=== PATIENT | female | born 1980 | race Caucasian/White ===

== ENCOUNTER → 2020-09-09 14:16 | Outpatient (BNVA) | payer BC, SELFPAY | PROVIDERS: Visit Provider Obstetrics & Gynecology | DX: Z76.89 Persons encountering health services in other specified circumstances (principal) ==

== ENCOUNTER 2020-09-11 08:37 | Outpatient (REF) | payer BC, SELFPAY ==
[2020-09-11 10:13] LABS: MANUAL DIFF FLAG NO
[2020-09-11 10:24] LABS: Basophils Absolute Auto 0.1 X10*3/uL (0.0-0.2); Basophils Percent Auto 0.7 % (0-2); Eosinophils Absolute Auto 0.1 X10*3/uL (0.0-0.4); Eosinophils Percent Auto 1.6 % (0-4); Hematocrit 44.3 % (37-47); Hemoglobin 14.7 g/dl (12.0-16.0); Imm Gran Abs Auto 0.02 X10*3/uL (0.00-0.03); Imm Gran Pct Auto 0.3 % (0.0-0.4); Lymphocytes Absolute Auto 2.4 X10*3/uL (1.2-4.9); Lymphocytes Percent Auto 31.6 % (20-40); Mean Corpuscular HGB Conc 33.2 g/dl (31.0-35.0); Mean Corpuscular Hemoglobin 30.1 pg (27.0-33.0); Mean Corpuscular Volume 90.6 fL (80-98); Mean Platelet Volume 8.8 fL (9.4-12.3); Monocytes Absolute Auto 0.6 X10*3/uL (0.1-1.2); Monocytes Percent Auto 8.3 % (2-11); Neutrophils Absolute Auto 4.4 X10*3/uL (2.0-8.3); Neutrophils Percent Auto 57.5 % (45-73); Platelet Count 226 X10*3/uL (160-400); Red Blood Count 4.89 X10*6/uL (4.20-5.50); White Blood Count 7.7 X10*3/uL (4.8-10.8)
[2020-09-11 10:42] LABS: Alanine Aminotransferase 17 U/L (0-31); Albumin Level 4.4 g/dL (3.5-5.0); Alkaline Phosphatase 81 U/L (39-117); Anion Gap 11 (12-20); Aspartate Amino Transferase 15 U/L (5-31); Bilirubin Total 0.9 mg/dL (0.0-1.0); Blood Urea Nitrogen 12 mg/dL (9-16); Calcium 9.1 mg/dL (8.4-10.2); Carbon Dioxide 28 mmol/L (22-29); Chloride 106 mmol/L (96-108); Estimated Glomerular Filt Rate > 60; Glucose Random 94 mg/dL (60-115); Potassium 4.8 mmol/l (3.3-5.1); Sodium 140 mmol/L (135-145); Total Protein 6.9 g/dL (6.5-8.0)
[2020-09-11 11:29] LABS: Erythrocyte Sedimentation Rate 7 MM/HR (0-20)
[2020-09-11 13:29] LABS: Thyroid Stimulating Hormone 0.77 uIU/mL (0.32-4.0)
[2020-09-12 16:42] LABS: CRP High Sensitivity 1.1 mg/L
== END 2020-09-11 08:38 | disposition home or self-care (01) ==
LOC: HO.LAB 08:37
PROVIDERS: PCP Internal Medicine; Referring Provider Internal Medicine; Visit Provider Physician Assistant
DX: K59.09 Other constipation (principal); K92.1 Melena; R19.7 Diarrhea, unspecified; R10.11 Right upper quadrant pain
CPT/HCPCS: 36415; 80053; 84443; 85025; 85652; 86141

== ENCOUNTER → 2020-09-16 11:18 | Outpatient (BNVA) | payer BC, SELFPAY | PROVIDERS: Visit Provider Obstetrics & Gynecology | DX: Z76.89 Persons encountering health services in other specified circumstances (principal) ==

== ENCOUNTER 2020-10-02 09:38 | Day surgery (SDC) | payer BC, SELFPAY ==
[2020-09-23 20:04] VITALS: BMI 27.0
--- NOTE | 2020-10-01 09:14 | P.CONAN_ITS ---
Documented by User: Sunita Agrawal 10/01/20 09:17 HPI - Anesthesia Eval Consult details Narrative: 40yo F for Colonoscopy [facility] Past Medical History Medical History (Updated 10/01/20 @ 09:15 by Sunita Agrawal) Blood in stool Family History Family History Mother Cervical cancer Father No problems noted. Surgical History Surgical History (Updated 09/23/20 @ 20:06 by Julianna Nunez RN) History of excision of lesion No significant past surgical history Social History Social History Alcohol intake: current Alcohol intake frequency: holidays/special occasions only Alcohol type: wine Smoking Status: Current every day smoker Tobacco Type: Cigarette Packs Per Day: 0.5 Cigarettes Per Day: 10.0 Years Smoked: 20 Smoked in Last 30 Days: Yes Use of substances other than those prescribed or required for medical reasons: No Advance Directives: No Advance Directives Information Provided: No Advance Directives on File: No Sexual orientation: Straight/Heterosexual Gender identity: female Meds Allergies Allergy/AdvReac Type Severity Reaction Status Date / Time morphine Allergy swelling Verified 09/16/20 11:19 Home Medications Medication Instructions Recorded Confirmed Type levonorgestrel 20 mcg/24 hours (6 INTRAUTERINE 09/09/20 History yrs) 52 mg intrauterine device Exam Exam Date and Time: October 01, 2020 0914 Height,Weight and Vital Signs: Height 5 ft 8 in Weight 80.739 kg Pertinent Lab Results Pertinent Lab Results: Laboratory Tests 09/11/20 09/11/20 09:58 09:58 WBC 7.7 Hgb 14.7 Hct 44.3 Plt Count 226 Sodium 140 Potassium 4.8 Chloride 106 Carbon Dioxide 28 BUN 12 Creatinine 0.79 Assessment and Plan Assessment Anesthesia Assessment: Chart Reviewed Documented by User: Heather Ortiz 10/02/20 10:07 [facility] Past Medical History Medical History (Updated 10/01/20 @ 09:15 by Sunita Agrawal) Blood in stool Family History Family History Mother Cervical cancer Father No problems noted. Surgical History Surgical History (Updated 09/23/20 @ 20:06 by Julianna Nunez RN) History of excision of lesion No significant past surgical history Social History Social History Alcohol intake: current Alcohol intake frequency: holidays/special occasions only Alcohol type: wine Smoking Status: Current every day smoker Tobacco Type: Cigarette Packs Per Day: 0.5 Cigarettes Per Day: 10.0 Years Smoked: 20 Smoked in Last 30 Days: Yes Use of substances other than those prescribed or required for medical reasons: No Advance Directives: No Advance Directives Information Provided: No Advance Directives on File: No Sexual orientation: Straight/Heterosexual Gender identity: female Meds Allergies Allergy/AdvReac Type Severity Reaction Status Date / Time morphine Allergy swelling Verified 09/16/20 11:19 Home Medications Medication Instructions Recorded Confirmed Type levonorgestrel 20 mcg/24 hours (6 INTRAUTERINE 09/09/20 History yrs) 52 mg intrauterine device Exam Airway TM Dist: >3cm Neck ROM: Full Denture: Upper Heart: RRR Lungs: CTA BL Assessment and Plan Assessment Anesthesia Assessment: Anesthesia Plan Discussed and Chart Reviewed Final Anesthetic Review NPO: Yes ASA Class: II Final Preanesthetic Review: Meds/Allgs Chart Reviewed and Consent Obtained/Reviewed Patient Risk: Intermediate Procedure Risk: Intermediate Anesthetic Plan Anesthetic Plan: MAC: Disposition: Standard PACU
[2020-10-02 10:04] VITALS: BP 121/86; PULSE 98; RESP 16; TEMP 36.2; O2SAT 99
[2020-10-02] MEDS: Lactated Ringers 1,000 ML 100 ML IVCONT (10:19)
--- NOTE | 2020-10-02 10:43 | MHC.SHP ---
Pre-Procedural Eval Section B Chief Complaint: Blood in Stool Relevant Family History (Specify if Yes): No Relevant Social History: Tobacco Use Present Medications: None Medical History: Significant History (smoker) History of Previous Operations: Relevant previous surgery/procedure and date(s) (IUD) Allergies: Allergies Allergy/AdvReac Type Severity Reaction Status Date / Time morphine Allergy swelling Verified 09/16/20 11:19 Review of Systems Sugical H&P ROS: Negative: Constitution, Cardiovascular, Respiratory, Neurological, Psychiatric, Hem-Onc, Allergic/Immunologic, Gastrointestinal, Genitourinary, Musculoskeletal, Integumentary, Endocrine and Eyes/Ears/Nose/Throat Exam Surgical H&P Exam: Normal: HEENT, Normal: Heart, Normal: Lungs, Normal: Extremities, Normal: Abdomen, Normal: Skin and Normal: Neurological Plan Diagnosis/Plan: Unchanged Patient has been examined and remains a candidate for the planned procedure
--- NOTE | 2020-10-02 10:45 | PM.OP ---
Brief Operative Note Date of Service: 10/02/20 Pre-op diagnosis: rectal bleeding Post-op diagnosis: same Procedure: see op note Surgeon: Cherelle Castro MD Anesthesia: MAC Estimated blood loss (mL): 0 Condition: stable Disposition: PACU
--- NOTE | 2020-10-02 10:45 | W.PM.OPN ---
Operative Note Operative Note Date of Service: 10/02/20 Narrative: Operative Information Procedure Description: Colonoscopy COLONOSCOPY Instrument: Olympus variable stiffness pediatric scope 190L Colonoscopy Monitoring: Vital signs and clinical assessment, continuous EKG monitoring, Pulse oximetry, Carbon Dioxide monitoring and blood pressure monitoring were done throughout the procedure. Colon withdrawal time was 22 minutes. Procedure: The patient was placed in the left lateral decubitis position and pre-procedure medications were administered. After a digital rectal examination of the ano-rectum, the video colonoscope was inserted into the rectum and advanced through the colon to the cecum/TI. The colonoscope was slowly withdrawn in a retrograde panoramic fashion and the colon mucosa was carefully examined including a retroflexed view of the rectum. Findings and interventions are described below. Procedure Difficulty: easy Findings: Terminal Ileum-normal Cecum:normal Ascending Colon: normal Transverse Colon -normal Descending Colon:normal Sigmoid Colon: small polyp 6-8 mm removed with biopsy forceps, at 25 cm from anal verge a 15-18 mm pedunculated polyp ws noted. This was injected with few cc of epinephrine and then removed with hot snare. The edges were ablated with soft tip coag and then 3 clips applied to close the defect. Rectum: Retroflexion with moderate sized internal hemorrhoids, grade I Anorectum - normal Colon preparation: [place] Bowel Preparation Scale Right colon; 3 Transverse colon: 3 Left colon; 3 (0 = Unprepared colon segment with mucosa not seen due to solid stool that cannot be cleared. 1 = Portion of mucosa of the colon segment seen, but other areas of the colon segment not well seen due to staining, residual stool and/or opaque liquid. 2 = Minor amount of residual staining, small fragments of stool and/or opaque liquid, but mucosa of colon segment seen well. 3 = Entire mucosa of colon segment seen well with no residual staining, small fragments of stool or opaque liquid) Impression and Post Procedure Diagnosis: polyps internal hemorrhoids Plan: High fiber diet leaflet Avoid straining at stool, epsom salts and sitz bath prn, anusol supps or cream prn Repeat Colonoscopy in 1-2 years or earlier if clinically indicated 5 d course of augmentin to reduce risk of post polypectomy syndrome Above findings were reviewed with the patient and relevant handouts were provided if indicated.
[2020-10-02 11:36] VITALS: BP 111/72; PULSE 72; RESP 16; TEMP 36.1; O2SAT 99
[2020-10-02 11:50] VITALS: BP 114/81; PULSE 82; RESP 16; O2SAT 96
[2020-10-02] MEDS: Amoxicillin/Potassium Clav 875 MG TABLET PO (12:02)
--- NOTE | 2020-10-02 12:24 | HO.POSTANES ---
Post Anesthesia Evaluation Post Anesthesia Evaluation Vital Signs: Vital Signs Temp Pulse Resp BP Pulse Ox 10/02/20 11:50 97.0 F 82 16 114/81 96 10/02/20 11:36 97.0 F 72 16 111/72 99 10/02/20 10:04 97.1 F 98 16 121/86 99 Anesthesia: Monitored Mental Status: Awake Pain Control: Satisfactory Nausea/Vomiting: None Hydration: Adequate Anesthesia-Related Issues: No Anes. Related Issues
== END 2020-10-02 12:29 | disposition home or self-care (01) ==
PROVIDERS: PCP Internal Medicine; Visit Provider Internal Medicine Gastroenterology
PROC: 0DJD8ZZ Inspection of Lower Intestinal Tract, Via Natural or Artificial Opening Endoscopic (ICD-10-PCS; CPT 45378; principal; 2020-10-02 11:10)
DX: K92.1 Melena (principal); D12.5 Benign neoplasm of sigmoid colon; K64.0 First degree hemorrhoids; F17.210 Nicotine dependence, cigarettes, uncomplicated
CPT/HCPCS: 45385; 45381; 88305; J0171

== ENCOUNTER → 2020-10-10 09:25 | Outpatient (BNVA) | payer BC, SELFPAY | PROVIDERS: PCP Internal Medicine; Visit Provider Physician Assistant | DX: Z76.89 Persons encountering health services in other specified circumstances (principal) ==

== ENCOUNTER 2020-11-13 12:47 | Outpatient (REF) | payer BC, SELFPAY ==
--- NOTE | 2020-11-13 12:53 | US_ITS ---
EXAMINATION: US PELVIS CLINICAL INFORMATION: Ovarian cyst. COMPARISON: None TECHNIQUE: Transabdominal and transvaginal ultrasound pelvis is performed. FINDINGS: The uterus is anteverted and anteflexed measuring 7.8 cm in length, 4.0 cm in AP and 6.2 cm wide. There is an IUD within the endometrial canal, suspicious for low-lying. No uterine lesions seen. The right ovary measures 3.7 x 1.5 x 2.3 cm and volume 6.7 mL. The left ovary measures 3.1 x 1.3 x 2.2 cm and volume 4.6 mL. There is small left adnexal cyst, question paraovarian or exophytic ovarian cyst measuring 1.7 x 1.0 x 2.0 cm. There is no free fluid in cul-de-sac. US/US pelvic limited IMPRESSION: Suspect low-lying IUD. Left paraovarian or exophytic ovarian cyst. Right ovary and cervix is unremarkable.
--- NOTE | 2020-11-13 12:53 | US_ITS ---
EXAMINATION: US PELVIS CLINICAL INFORMATION: Ovarian cyst. COMPARISON: None TECHNIQUE: Transabdominal and transvaginal ultrasound pelvis is performed. FINDINGS: The uterus is anteverted and anteflexed measuring 7.8 cm in length, 4.0 cm in AP and 6.2 cm wide. There is an IUD within the endometrial canal, suspicious for low-lying. No uterine lesions seen. The right ovary measures 3.7 x 1.5 x 2.3 cm and volume 6.7 mL. The left ovary measures 3.1 x 1.3 x 2.2 cm and volume 4.6 mL. There is small left adnexal cyst, question paraovarian or exophytic ovarian cyst measuring 1.7 x 1.0 x 2.0 cm. There is no free fluid in cul-de-sac. US/US transvaginal IMPRESSION: Suspect low-lying IUD. Left paraovarian or exophytic ovarian cyst. Right ovary and cervix is unremarkable.
== END 2020-11-13 12:48 | disposition home or self-care (01) ==
LOC: HO.US 12:47
PROVIDERS: Visit Provider Obstetrics & Gynecology
DX: N83.209 Unspecified ovarian cyst, unspecified side (principal)
CPT/HCPCS: 76830; 76857

== ENCOUNTER → 2020-11-27 16:02 | Outpatient (BNVA) | payer BC, SELFPAY | PROVIDERS: PCP Internal Medicine; Visit Provider Obstetrics & Gynecology | DX: Z76.89 Persons encountering health services in other specified circumstances (principal) ==

== ENCOUNTER → 2020-12-17 10:24 | Outpatient (BNVA) | payer BC, SELFPAY | PROVIDERS: Visit Provider Obstetrics & Gynecology ==

== ENCOUNTER 2021-10-22 15:37 | Outpatient (REF) | payer BC, SELFPAY ==
--- NOTE | ~2021-10-22 | MM_ITS ---
EXAMINATION: MM SCREENING DIGITAL BREAST TOMOSYNTHESIS, BILATERAL CLINICAL INFORMATION: Screening. Asymptomatic. The lifetime risk of breast cancer based on the Tyrer-Cuzick Model is 8.4%. COMPARISON: Mammography: None. TECHNIQUE: Digital breast tomosynthesis is performed in both the craniocaudal and mediolateral oblique views along with computer-aided detection (CAD). Synthesized 2D images are generated from the tomosynthesis. FINDINGS: The breasts are heterogeneously dense, which may obscure small masses (ACR BI-RADS breast composition Category c). No suspicious abnormal dominant mass or suspicious grouping of microcalcifications is identified within the right breast. About the inferior medial aspect of the left breast there is a circumscribed approximately 1.0 x 0.8 cm density lying approximately 3 cm from the nipple. There are also noted to be some calcifications about the deep lateral aspect of the left breast. Spot magnification views are recommended. MM/MM tomosynthesis screening BI IMPRESSION: Left breast calcifications and circumscribed density for further evaluation with spot magnification views of the calcifications and ultrasound of the circumscribed density. ASSESSMENT: BI-RADS 0: Incomplete - Need Additional Imaging Evaluation RECOMMENDATION: 1. Additional views of the left breast. 2. Targeted ultrasound if warranted after review of the additional views. 3. Radiology department staff will contact the patient for additional imaging.
== END 2021-10-22 15:38 | disposition home or self-care (01) ==
LOC: HO.MAMMO 15:37
PROVIDERS: Visit Provider Pediatrics
DX: Z12.31 Encounter for screening mammogram for malignant neoplasm of breast (principal)
CPT/HCPCS: 77063; 77067

== ENCOUNTER 2021-11-10 10:20 | Outpatient (REF) | payer BC, SELFPAY ==
--- NOTE | ~2021-11-10 | US_ITS ---
EXAMINATION: MM DIAGNOSTIC DIGITAL MAMMOGRAPHY, LEFT US DIAGNOSTIC ULTRASOUND BREAST, LEFT CLINICAL INFORMATION: Recall from baseline mammography for 2 findings, possible calcifications posterior outer left breast and smooth partly obscured nodular asymmetry periareolar medial left breast. TC score 8%. COMPARISON: Mammography: 10/22/2021 (baseline). TECHNIQUE: Digital mammography is performed in the following views: Spot magnification CC spot magnification ML, magnification exaggerated CC x2, magnification ML x2. Ultrasound left breast is targeted to the medial periareolar region. Grayscale imaging and color Doppler are performed without and with harmonics. FINDINGS: There are scattered areas of fibroglandular density (ACR BI-RADS breast composition Category b). Additional views periareolar left breast demonstrate subtle oval smooth benign-appearing nodule medial periareolar breast corresponding to the screening exam. No architectural abnormality. Additional magnification views outer left breast demonstrate a few isolated calcifications. There are no grouped or pleomorphic or segmental calcifications. Ultrasound demonstrates incidental oval simple cyst periareolar 9:00 position measuring 1.0 x 0.5 x 1.0 cm. Margins are circumscribed. There is increased through-transmission of sound. No associated color flow. Results are discussed with the patient at time of visit. US/US breast LT limited IMPRESSION: 1. Incidental simple cyst medial periareolar position, 1.0 cm. 2. No abnormal calcifications. ASSESSMENT: BI-RADS 2: Benign RECOMMENDATION: Routine annual mammography screening. This patient's information was entered into a reminder system with a target due date for their next mammogram.
== END 2021-11-10 10:21 | disposition home or self-care (01) ==
LOC: HO.MAMMO 10:20
PROVIDERS: PCP Pediatrics; Visit Provider Pediatrics
DX: R92.2 Inconclusive mammogram (principal)
CPT/HCPCS: 76642; 77061; 77065

== ENCOUNTER → 2022-01-01 10:02 | Outpatient (BNVA) | payer BC, SELFPAY | PROVIDERS: PCP Pediatrics; Referring Provider Pediatrics; Visit Provider Physician Assistant ==

== ENCOUNTER 2022-04-09 07:52 | Day surgery (SDC) | payer BC, SELFPAY ==
[2022-04-03 14:27] VITALS: BMI 25.8
--- NOTE | 2022-04-08 10:08 | HO.ANESPROP2 ---
Documented by User: Sunita Agrawal NP 04/08/22 10:08 HPI - Anesthesia Eval Consult details Narrative: 41yo F for Colonoscopy PMFSH Active Problems Active Problems: All Active Problems (Updated 01/01/22 @ 10:56 by Yoselyn Norton PA-C) Ovarian cyst (Acute) Tubular adenoma (Acute) Hemorrhoids (Acute) Blood in stool (Acute) Past Medical History Medical History Blood in stool Hemorrhoids Smoker Family History Family History Mother Cervical cancer Father No problems noted. Surgical History Surgical History History of excision of lesion No significant past surgical history Social History Social History (Updated 01/01/22 @ 10:54 by Yoselyn Norton PA-C) Household Members Other:: , 2 daughters Alcohol intake: current Alcohol intake frequency: a few times a month Alcohol type: wine Patient Tobacco Use Status: Current everyday Tobacco user Tobacco use type: Cigarette Cigarette Packs Per Day: 0.5 Cigarettes Per Day: 10.0 Years Smoked: 25 Use of substances other than those prescribed or required for medical reasons: No Are you DNR?: No Advance Directives: No Advance Directives Information Provided: No Advance Directives on File: No Recently lost weight without trying: No Nutrition Risks: No Nutritional Risk Patient : No Sexual orientation: Straight/Heterosexual Gender identity: Female Meds Allergies Allergy/AdvReac Type Severity Reaction Status Date / Time morphine Allergy swelling Verified 04/03/22 15:25 Home Medications Medication Instructions Recorded Confirmed Last Taken Type levonorgestrel 20 mcg/24 hours (7 intrauterine 09/09/20 01/01/22 Unknown History yrs) 52 mg intrauterine device (Mirena) Exam Exam Date and Time: April 08, 2022 1008 Height,Weight and Vital Signs: Height 5 ft 9 in Weight 79.379 kg Assessment and Plan Assessment Anesthesia Assessment: Chart Reviewed Documented by User: Ike Seymour MD 04/09/22 07:42 [facility] Past Medical History Medical History Blood in stool Hemorrhoids Smoker Family History Family History Mother Cervical cancer Father No problems noted. Family history of problems with anesthesia: No Surgical History Surgical History History of excision of lesion No significant past surgical history History of Problems with Anesthesia: No Social History Social History (Updated 01/01/22 @ 10:54 by Yoselyn Norton PA-C) Household Members Other:: , 2 daughters Alcohol intake: current Alcohol intake frequency: a few times a month Alcohol type: wine Patient Tobacco Use Status: Current everyday Tobacco user Tobacco use type: Cigarette Cigarette Packs Per Day: 0.5 Cigarettes Per Day: 10.0 Years Smoked: 25 Use of substances other than those prescribed or required for medical reasons: No Are you DNR?: No Advance Directives: No Advance Directives Information Provided: No Advance Directives on File: No Recently lost weight without trying: No Nutrition Risks: No Nutritional Risk Patient : No Sexual orientation: Straight/Heterosexual Gender identity: Female Meds Allergies Allergy/AdvReac Type Severity Reaction Status Date / Time morphine Allergy swelling Verified 04/03/22 15:25 Home Medications Medication Instructions Recorded Confirmed Last Taken Type levonorgestrel 20 mcg/24 hours (7 intrauterine 09/09/20 01/01/22 Unknown History yrs) 52 mg intrauterine device (Mirena) Exam Airway Mallampati Class: II TM Dist: >3cm Neck ROM: Full Assessment and Plan Assessment Anesthesia Assessment: Anesthesia Plan Discussed Final Anesthetic Review Family History of Problems with Anesthesia: No History of Problems with Anesthesia: No NPO: Yes ASA Class: II Final Preanesthetic Review: No Changes in Pt Med Stat, Meds/Allgs Chart Reviewed, Consent Obtained/Reviewed and Anes Risks/Benef Reviewed Patient Risk: Low Procedure Risk: Low Anesthetic Plan Anesthetic Plan: MAC: Disposition: Standard PACU
[2022-04-09 08:10] LABS: UPreg QC Valid YES; Urine Pregnancy NEGATIVE (NEGATIVE)
[2022-04-09 08:24] VITALS: BP 123/76; PULSE 72; RESP 16; TEMP 36.3; O2SAT 99
[2022-04-09] MEDS: Lactated Ringers 1,000 ML 100 ML IVCONT (08:30)
--- NOTE | 2022-04-09 08:40 | MHC.SHP ---
Pre-Procedural Eval Section A Date of Service: 04/09/22 Section B Chief Complaint: Hx of colon polyps Relevant Family History (Specify if Yes): Yes Relevant Social History: Tobacco Use Present Medications: see Short Stay Collaborative assessment Medical History: Significant History History of Previous Operations: Relevant previous surgery/procedure and date(s) (colonsocopy) Allergies: Allergies Allergy/AdvReac Type Severity Reaction Status Date / Time morphine Allergy swelling Verified 04/03/22 15:25 Review of Systems Sugical H&P ROS: Negative: Constitution, Cardiovascular, Respiratory, Neurological, Psychiatric, Hem-Onc, Allergic/Immunologic, Gastrointestinal, Genitourinary, Musculoskeletal, Integumentary, Endocrine and Eyes/Ears/Nose/Throat Exam Surgical H&P Exam: Normal: HEENT, Normal: Heart, Normal: Lungs, Normal: Extremities, Normal: Abdomen, Normal: Skin and Normal: Neurological Plan Diagnosis/Plan: Unchanged I have reviewed the history and physical and performed a pertinent physical examination on my patient. No changes have occurred unless specified.
[2022-04-09 09:52] VITALS: BP 94/55; PULSE 70; RESP 16; TEMP 36.4; O2SAT 95
--- NOTE | 2022-04-09 09:53 | PM.OP ---
Brief Operative Note Date of Service: 04/09/22 Pre-op diagnosis: hx of colon polyps Post-op diagnosis: same Procedure: see op note Surgeon: Cherelle Castro MD Anesthesia: MAC Was an [employer] used for this Procedure?: No Estimated blood loss (mL): 0 Condition: stable Disposition: PACU
--- NOTE | 2022-04-09 09:54 | W.PM.OPN ---
Operative Note Operative Note Date of Service: 04/09/22 Narrative: Operative Information Procedure Description: Colonoscopy Indication: hx of colon polyps Anesthesia: MAC COLONOSCOPY Instrument: Olympus variable stiffness pediatric scope 190L Colonoscopy Monitoring: Vital signs and clinical assessment, continuous EKG monitoring, Pulse oximetry, Carbon Dioxide monitoring and blood pressure monitoring were done throughout the procedure. Colon withdrawal time was 10 minutes. Procedure: The patient was placed in the left lateral decubitis position and pre-procedure medications were administered. After a digital rectal examination of the ano-rectum, the video colonoscope was inserted into the rectum and advanced through the colon to the cecum/TI. The colonoscope was slowly withdrawn in a retrograde panoramic fashion and the colon mucosa was carefully examined including a retroflexed view of the rectum. Findings and interventions are described below. Procedure Difficulty: easy Findings: Terminal Ileum-normal Cecum:normal Ascending Colon: 10-12 mm sessile polyp removed with cold snare Transverse Colon -normal Descending Colon:normal Sigmoid Colon: normal Rectum: Retroflexion with small internal hemorrhoids, grade I Anorectum - normal Colon preparation: [place] Bowel Preparation Scale Right colon; 2 Transverse colon: 3 Left colon; 3 (0 = Unprepared colon segment with mucosa not seen due to solid stool that cannot be cleared. 1 = Portion of mucosa of the colon segment seen, but other areas of the colon segment not well seen due to staining, residual stool and/or opaque liquid. 2 = Minor amount of residual staining, small fragments of stool and/or opaque liquid, but mucosa of colon segment seen well. 3 = Entire mucosa of colon segment seen well with no residual staining, small fragments of stool or opaque liquid) Impression and Post Procedure Diagnosis: polyps internal hemorrhoids Plan: High fiber diet leaflet Avoid straining at stool, epsom salts and sitz bath, anusol supps or cream Repeat Colonoscopy in 1-2 years or earlier if clinically indicated Above findings were reviewed with the patient and relevant handouts were provided if indicated.
[2022-04-09 10:11] VITALS: BP 115/76; PULSE 70; RESP 16; TEMP 36.4; O2SAT 98
== END 2022-04-09 10:47 | disposition home or self-care (01) ==
PROVIDERS: Nurse Practitioner; Visit Provider Internal Medicine Gastroenterology
PROC: 0DJD8ZZ Inspection of Lower Intestinal Tract, Via Natural or Artificial Opening Endoscopic (ICD-10-PCS; CPT 45378; principal; 2022-04-09 09:30)
DX: Z12.11 Encounter for screening for malignant neoplasm of colon (principal); Z86.010 Personal history of colon polyps; D12.2 Benign neoplasm of ascending colon; K64.0 First degree hemorrhoids; Z88.8 Allergy status to other drugs, medicaments and biological substances; K59.00 Constipation, unspecified; F17.210 Nicotine dependence, cigarettes, uncomplicated
CPT/HCPCS: 45385; 81025; 88305